=== PATIENT | female | born 1960 | race Caucasian/White ===

== ENCOUNTER 2016-11-13 19:05 | Emergency (ER) | payer BC ==
--- NOTE | 2016-11-13 19:31 | ER PHYSICIAN DOCUMENTATION ---
Physician Documentation [facility] Name:Bridgette Nguyen Age:56 yrs Sex:Female :1960 Arrival Date:11/13/2016 Time:19:05 Bed1 Private MD: Galindo Fowler Disposition: 11/13/16 19:24 Discharged to Home/Self Care. Impression: Mosquito Bite. - Condition is Good. - Discharge Instructions: BITE Mosquito - MOSQUITO BITE. - Prescriptions for Prednisone 20 mg Oral Tablet - take 2 tablet by ORAL route once daily for 5 days; 10 tablet. - Medical Reconciliation form form. - Follow up: Private Physician; When: As needed; Reason: Recheck today's complaints. - Problem is new. - Symptoms are unchanged. HPI: 11/13 19:37 This 56 yrs old Female presents to ER via Private Vehicle with complaints of be Insect Bite - ARMS & FEET. 19:37 by a mosquito, didn't use DEET, and concerned because her MS flares with minor immune be stimulation. Onset: The symptom(s)/episode began/occurred today. The patient has experienced a previous episode, last year. Historical: - Allergies: Codeine; Floxin; - Home Meds: 1. levothyroxine 75 mcg oral cap 1 cap once daily 2. atenolol 50 mg oral tab 1 tab once daily for Hypertension 3. hydrochlorothiazide 25 mg oral tab 1 tab once daily 4. avonex - PMHx: MS; Hypertension; HYPOTHYROIDISM; - PSHx: None; - Tetanus: < 10 years. - Ebola Screening: : Patient negative for fever greater than or equal to 101.5 degrees Fahrenheit, and additional compatible Ebola Virus Disease symptoms. Patient denies exposure to infectious person. Patient denies travel to an Ebola-affected area in the 21 days before illness onset. . - Immunization history: Flu Vaccine < 1 year. - Social history: Smoking status: Patient states was never smoker of tobacco. ROS: 19:37 Skin: Positive for rash. be 19:37 All other systems are negative. Exam: 19:37 Constitutional: This is a well developed, well nourished patient who is awake, alert, be and in no acute distress. 19:37 Skin: rash can be described as urticarial, mosquito bites w/o cellulitis or drainage. Vital Signs: 19:18 BP 140 / 78; Pulse 88; Resp 14; Temp 97.3(TE); Pulse Ox 92% on R/A; Weight 88.45 kg; lp Height 5 ft. 2 in. (157.48 cm); Pain 0/10; 19:18 Body Mass Index 35.67 (88.45 kg, 157.48 cm) lp MDM: 19:23 Patient medically screened. be 19:37 Data reviewed: vital signs, nurses notes, and as a result, I will discharge patient, be administer steroids, prednisone. 19:41 Rabies Status: Rabies immunization is not indicated. be Dispensed Medications: No medications were administered Signatures: Sabrina Tomas RN RN lp Galindo Burciaga MD MD be
--- NOTE | 2016-11-13 19:31 | ER NURSING DOCUMENTATION ---
Nurse's Notes [facility] Name:Bridgette Nguyen Age:56 yrs Sex:Female :1960 Arrival Date:11/13/2016 Time:19:05 Bed1 Private MD: Diagnosis:Mosquito Bite Presentation: 11/13 19:12 Acuity: JANET 3 19:14 Presenting complaint: Patient states: Bug bites. Transition of care: Home. lp 19:14 Method Of Arrival: Private Vehicle lp 19:14 Acuity: JANET 4 lp Triage Assessment: 19:17 Bite description: bite sustained to All over arms and legs and lower back by a lp mosquito, animal information: vaccination(s) is current. General: Appears in no apparent distress, Behavior is appropriate for age. Pain: Denies pain. EENT: No deficits noted. Neuro: No deficits noted. Cardiovascular: No deficits noted. Respiratory: Airway is patent Trachea midline Respiratory effort is even, unlabored, Respiratory pattern is regular. GI: No deficits noted. : No deficits noted. Derm: numerous bug bites to arms, legs and lower back. Historical: - Allergies: Codeine; Floxin; - Home Meds: 1. levothyroxine 75 mcg oral cap 1 cap once daily 2. atenolol 50 mg oral tab 1 tab once daily for Hypertension 3. hydrochlorothiazide 25 mg oral tab 1 tab once daily 4. avonex - PMHx: MS; Hypertension; HYPOTHYROIDISM; - PSHx: None; - Tetanus: < 10 years. - Ebola Screening: : Patient negative for fever greater than or equal to 101.5 degrees Fahrenheit, and additional compatible Ebola Virus Disease symptoms. Patient denies exposure to infectious person. Patient denies travel to an Ebola-affected area in the 21 days before illness onset. . - Immunization history: Flu Vaccine < 1 year. - Social history: Smoking status: Patient states was never smoker of tobacco. Screenin:19 Infectious Disease Risk None. Abuse screen: Denies threats or abuse. Denies injuries lp from another. Nutritional screening: No deficits noted. Assessment: 19:19 Derm: Skin is intact, is healthy with good turgor, Skin is pink, warm & dry. lp Vital Signs: 19:18 BP 140 / 78; Pulse 88; Resp 14; Temp 97.3(TE); Pulse Ox 92% on R/A; Weight 88.45 kg; lp Height 5 ft. 2 in. (157.48 cm); Pain 0/10; 19:18 Body Mass Index 35.67 (88.45 kg, 157.48 cm) ED Course: 19:08 Patient arrived in ED. 19:12 Triage completed. 19:14 Sabrina Tomas, RN is Primary Nurse. lp 19:[address] Burciaga. lp 19:19 Valuables Remains with patient Patient has correct armband on for positive lp identification. Placed in gown. Bed in low position. Call light in reach. 19:23 Galindo Burciaga MD is Attending Physician. be Administered Medications: No medications were administered Outcome: 19:24 Discharge ordered by . be 19:29 Discharged to home ambulatory. lp 19:29 Condition: good 19:29 Instructed on discharge instructions, follow up and referral plans. medication usage. 19:30 Patient left the ED. lp 11/14 08:46 Discharge F/U Call: Unable to reach: left voicemail: rh Signatures: Jessika Thakkar, RN RN Sabrina Tomas, RN RN Galindo Burciaga MD MD be Hofsess, Rachel Syed Aguayo
== END 2016-11-13 19:31 | disposition home or self-care (01) ==
LOC: ER 19:05
DX: S90.861A Insect bite (nonvenomous), right foot, initial encounter (principal); S90.862A Insect bite (nonvenomous), left foot, initial encounter; S40.861A Insect bite (nonvenomous) of right upper arm, initial encounter; S40.862A Insect bite (nonvenomous) of left upper arm, initial encounter; S50.861A Insect bite (nonvenomous) of right forearm, initial encounter; S50.862A Insect bite (nonvenomous) of left forearm, initial encounter; W57.XXXA Bitten or stung by nonvenomous insect and other nonvenomous arthropods, initial encounter; G35 Multiple sclerosis; I10 Essential (primary) hypertension; Z79.899 Other long term (current) drug therapy
CPT/HCPCS: 99281